=== PATIENT | male | born 1950 | race Caucasian/White ===

== ENCOUNTER 2016-09-21 17:42 | Emergency (ER) | payer MEDICARE, MEDICAID ==
[~2016-09-21] VITALS: Ht 170.2 cm; Wt 75.0 kg
[2016-09-21] MEDS ORDERED: BALANCED SALT IRRIG SOLN 15ML IO ONE (18:15)
[2016-09-21] MEDS ORDERED: FLUORESCEIN SODIUM 1MG/STRIP OP ONE (19:15)
[2016-09-21] MEDS ORDERED: TETRACAINE 0.5% OPHTH DROPS 4ML OP ONE (19:15)
[2016-09-21 21:02] VITALS: BP 158/78
== END 2016-09-21 21:03 | disposition home or self-care (01) ==
LOC: ER 18:15
DX: T65.893A Toxic effect of other specified substances, assault, initial encounter (principal); T26.11XA Burn of cornea and conjunctival sac, right eye, initial encounter; H54.42 Blindness, left eye, normal vision right eye; Y93.89 Activity, other specified; Y92.89 Other specified places as the place of occurrence of the external cause; Y99.8 Other external cause status
CPT/HCPCS: 99283